=== PATIENT | male | born 1975 | race Two or more races ===

== ENCOUNTER → 2019-05-20 | Day surgery (SDC) | payer OTHER ==
[~2019-05-20] MED LIST: B&O 60MG R/S 60 MG SUPP PR ONE; CEFTRIAXONE SOD 1 GM/NS 50 ML 50 ML IV ONE; DESFLURANE 240 ML BTL INH ONE; DEXAMETHASONE SOD PHOS INJ 4 MG/ML VIAL ONE; DOXAZOSIN MESYLA2 MG PO; FENTANYL CITRATE/PF 100MCG/2 ML INJ ONE; IOPAMIDOL 300MG/ML 50ML INFUS..BTL IV ONE; LIDOCAINE HCL 2% LOCAL INJ 5 ML SDV VIAL INJ ONE; MIDAZOLAM HCL 2 MG/2 ML VIAL ONE; ONDANSETRON HCL INJ 2MG/ML 2ML 2 MG/ML VIAL ONE; PROPOFOL IV EMULSION 10 MG/ML 20 ML VIAL ONE
--- OUTSIDE RECORDS SUMMARY | 2019-05-20 13:12 | XMS REPORT ---
Author Author [facility] Address Unknown Phone Unavailable Care Team Providers Care Operations Developer Name Role Phone Unavailable Unavailable Payers Payer Name Policy Type Policy Number Effective Date Expiration Date Problems This patient has no known problems. Allergies, Adverse Reactions, Alerts Allergy Name Allergy Type Status Severity Reaction(s) Onset Date Inactive Date Treating Clinician Comments No Known Allergies DA Active U 2019-03-10 00:00:00 Medications This patient has no known medications. Results Test Description Test Time Test Comments Text Results Atomic Results Result Comments CBC W/AUTO DIFF 2019-03-11 01:22:00 WHITE BLOOD CELL (test code=WBC) 7.80 k/mm3 4.00-12.00 RED BLOOD CELL (test code=RBC) 5.44 M/uL 4.00-5.60 HEMOGLOBIN (test code=HGB) 14.8 GM/DL 12.5-16.9 HEMATOCRIT (test code=HCT) 46.0 % 40.0-54.0 MEAN CELL VOLUME (test code=MCV) 84.6 fL 81.0-99.0 MEAN CELL HGB (test code=MCH) 27.2 pg 27.0-31.0 MEAN CELL HGB CONCETRATION (test code=MCHC) 32.2 GM/DL 33.0-37.0 RED CELL DISTRIBUTION WIDTH CV (test code=RDW) 14.8 % 11.5-14.5 PLATELET COUNT (test code=PLT) 171 K/mm3 150-400 MEAN PLATELET VOLUME (test code=MPV) 13.5 FL 8.8-13.1 NEUTROPHIL % (test code=NT%) 47.8 % 40.0-76.0 LYMPHOCYTE % (test code=LY%) 44.6 % 15.0-40.0 MIXED % (test code=MX%) 7.6 % 3.0-15.0 NEUTROPHIL # (test code=NT#) 3.7 K/uL 1.8-7.6 LYMPHOCYTE # (test code=LY#) 3.5 K/uL 1.0-3.8 MIXED # (test code=MX#) 0.6 k/mm3 0.1-0.8 - CT ABD PELVIS [id number] 17:48:00 Name: COLIN RAMIREZ [place] FSED : 1975 Age/S: 43 / M Unit #: [id number] Loc: [place] Phys: Amilcar Rosales MD Acct: [id number] Dis Date: Status: REG ER PHONE #: Exam Date: 03/10/2019 3650 FAX #: Reason: urinary retention, abd pain EXAMS: CPT CODE: [id number] CT ABD PELVIS W/CONT 99959 EXAM: CT ABDOMEN AND PELVIS WITH CONTRAST DATE: 03/10/2019 4:52 PM : 1975; Age: 43 years y/o Male INDICATION: urinary retention, abd pain COMPARISON: None. TECHNIQUE: Volumetric CT of the abdomen and pelvis is acquired following the intravenous administration of contrast. Axial, coronal and sagittal images are provided. IV contrast: 100 mL Isovue Enteric contrast: None. DLP: 1156 mGy-cm CT imaging performed at this location utilizes radiation dose optimization techniques which include one or more of the following: -Automated exposure control -Adjustment of the mA and/or kV according to patient size -Use of iterative reconstruction technique FINDINGS: Lower thorax: Clear. Liver: Diffusely decreased attenuation consistent with steatosis. Gallbladder: No calcified stones or wall thickening. Adrenals: Normal. Kidneys and ureters: Normal. Spleen: Normal. Pancreas: Normal. Visualized Gastrointestinal tract: Grossly unremarkable. No obstruction. Peritoneum, mesentery and retroperitoneum: No free air, lymph adenopathy, ascites or loculated fluid. Reproductive organs: Prost atomegaly. Seminal vesicles are symmetric. Prostate gland measures up to 6.3 cm. PAGE 1 Signed Report (CONT INUED) Name: COLIN RAMIREZ [place] FSED : 1975 Age/S: 43 / M Unit #: [id number] Loc: [place], [place] Phys: Amilcar Silva MD Acct: [id number] Dis Date: Status: REG ER CONSUELO NE #: Exam Date: 03/10/2019 1737 FAX #: Reason: urinary retention, abd pain EXAM S: CPT CODE: [id number] CT ABD PELVIS W/CONT 05980 <Continued> Bladder: Mild circumferential bladder wall thickening. Soft tissues: Normal. Bones: No acute abnormality. Age-related degenerative findings. Focal disc bulge is seen at L1-2 level indenting the thecal sac. IMPRESSION: 1. Pro state gland is enlarged measuring 6.3 cm with mild circumferential bladd er wall thickening. Please correlate with chronic bladder outlet obstru ction. 2. Hepatic steatosis. 3. Focal disc bulge is seen at L1 -2 level indenting the thecal sac. MRI lumbar spine can be performed if clinically indicated. SL: [id number] Electronically Signed by Miesha Gonzales on at 1748 Reported and signed by: Ramsey Gonzales D.O. CC: Amilcar Rosales MD Technologist:Katya Ramirez, RT(R) CTDI: DLP: Trnscb Date/Time: 03/10/2019 (1748) [email or web address] Orig Print D/T: S: 03/10/2019 (175) PAGE 2 Signed Report UA DIPSTICK [id number] 15:53:00* Test Item Value Reference Range Comments UA GLUCOSE DIPSTIC POC (test code=GLUUP) 2+ NEGATIVE UA BILIRUBIN DIPSTICK (test code=BILU) 1+ NEGATIVE UA KETONE DIPSTICK POC (test code=KETUP) 1+ NEGATIVE UA SPECIFIC GRAVITY (test code=SGU) 1.020 1.005-1.030 UA BLOOD DIPSTIC POC (test code=BLUP) 2+ NEGATIVE Performed by certified bleach machine operator at [facility] UA PH DIPSTIC POC (test code=PHUP) 5 5.0-7.0 UA PROTEIN DIPSTICK POC (test code=DPROUP) 1+ NEGATIVE UA UROBILINIOGEN QUAL (test code=UROQL) 1+ 0.2-1.0 UA NITRITE DIPSTICK POC (test code=NITUP) 1+ Negative UA LEUKOCYTE ESTERASE W REFLEX (test code=LEUUR) TRACE NEGATIVE [id number] 15:17:00* Test Item Value Reference Range Comments SODIUM (test code=NA/ABG) 144 MEQ/L 134-147 [id number] 15:17:00* Test Item Value Reference Range Comments POTASSIUM (test code=K/ABG) MEQ/L 3.4-5.0 [id number] 15:17:00* Test Item Value Reference Range Comments CHLORIDE (test code=CL/ABG) MEQ/L 100-108 CREATININE [id number] 15:17:00* Test Item Value Reference Range Comments CREATININE ABG (test code=CREAABG) mg/dL 0.8-1.3 POC IONIZED [id number] 15:17:00* Test Item Value Reference Range Comments POC IONIZED CALCIUM (test code=POCCA) MMOL/L 1.12-1.32 POC [id number] 15:17:00* Test Item Value Reference Range Comments POC GLUCOSE (test code=POCGLU) MG/DL 70-110 [id number] 15:17:00* Test Item Value Reference Range Comments SODIUM (test code=NA/ABG) 144 MEQ/L 134-147 [id number] 15:17:00* Test Item Value Reference Range Comments POTASSIUM (test code=K/ABG) 4.1 MEQ/L 3.4-5.0 [id number] 15:17:00* Test Item Value Reference Range Comments CHLORIDE (test code=CL/ABG) MEQ/L 100-108 CREATININE [id number] 15:17:00* Test Item Value Reference Range Comments CREATININE ABG (test code=CREAABG) mg/dL 0.8-1.3 POC IONIZED [id number] 15:17:00* Test Item Value Reference Range Comments POC IONIZED CALCIUM (test code=POCCA) MMOL/L 1.12-1.32 POC [id number] 15:17:00* Test Item Value Reference Range Comments POC GLUCOSE (test code=POCGLU) MG/DL 70-110 [id number] 15:17:00* Test Item Value Reference Range Comments SODIUM (test code=NA/ABG) 144 MEQ/L 134-147 [id number] 15:17:00* Test Item Value Reference Range Comments POTASSIUM (test code=K/ABG) 4.1 MEQ/L 3.4-5.0 [id number] 15:17:00* Test Item Value Reference Range Comments CHLORIDE (test code=CL/ABG) MEQ/L 100-108 CREATININE [id number] 15:17:00* Test Item Value Reference Range Comments CREATININE ABG (test code=CREAABG) mg/dL 0.8-1.3 POC IONIZED [id number] 15:17:00* Test Item Value Reference Range Comments POC IONIZED CALCIUM (test code=POCCA) 1.25 MMOL/L 1.12-1.32 POC [id number] 15:17:00* Test Item Value Reference Range Comments POC GLUCOSE (test code=POCGLU) MG/DL 70-110 [id number] 15:17:00* Test Item Value Reference Range Comments SODIUM (test code=NA/ABG) 144 MEQ/L 134-147 [id number] 15:17:00* Test Item Value Reference Range Comments POTASSIUM (test code=K/ABG) 4.1 MEQ/L 3.4-5.0 [id number] 15:17:00* Test Item Value Reference Range Comments CHLORIDE (test code=CL/ABG) MEQ/L 100-108 CREATININE [id number] 15:17:00* Test Item Value Reference Range Comments CREATININE ABG (test code=CREAABG) mg/dL 0.8-1.3 POC IONIZED [id number] 15:17:00* Test Item Value Reference Range Comments POC IONIZED CALCIUM (test code=POCCA) 1.25 MMOL/L 1.12-1.32 POC [id number] 15:17:00* Test Item Value Reference Range Comments POC GLUCOSE (test code=POCGLU) 100 MG/DL 70-110 [id number] 15:17:00* Test Item Value Reference Range Comments SODIUM (test code=NA/ABG) 144 MEQ/L 134-147 [id number] 15:17:00* Test Item Value Reference Range Comments POTASSIUM (test code=K/ABG) 4.1 MEQ/L 3.4-5.0 [id number] 15:17:00* Test Item Value Reference Range Comments CHLORIDE (test code=CL/ABG) 105 MEQ/L 100-108 CREATININE [id number] 15:17:00* Test Item Value Reference Range Comments CREATININE ABG (test code=CREAABG) mg/dL 0.8-1.3 POC IONIZED [id number] 15:17:00* Test Item Value Reference Range Comments POC IONIZED CALCIUM (test code=POCCA) 1.25 MMOL/L 1.12-1.32 POC [id number] 15:17:00* Test Item Value Reference Range Comments POC GLUCOSE (test code=POCGLU) 100 MG/DL 70-110 [id number] 15:17:00* Test Item Value Reference Range Comments SODIUM (test code=NA/ABG) 144 MEQ/L 134-147 [id number] 15:17:00* Test Item Value Reference Range Comments POTASSIUM (test code=K/ABG) 4.1 MEQ/L 3.4-5.0 [id number] 15:17:00* Test Item Value Reference Range Comments CHLORIDE (test code=CL/ABG) 105 MEQ/L 100-108 CREATININE [id number] 15:17:00* Test Item Value Reference Range Comments CREATININE ABG (test code=CREAABG) 0.8 mg/dL 0.8-1.3 POC IONIZED [id number] 15:17:00* Test Item Value Reference Range Comments POC IONIZED CALCIUM (test code=POCCA) 1.25 MMOL/L 1.12-1.32 POC [id number] 15:17:00* Test Item Value Reference Range Comments POC GLUCOSE (test code=POCGLU) 100 MG/DL 70-110
[2019-05-20 13:46] VITALS: BP 118/91
--- NOTE | 2019-05-22 22:26 | Operative Report ---
DATE OF PROCEDURE: 05/20/2019 SURGEON: Daniel Palafox MD PREOPERATIVE DIAGNOSES: 1. Urinary tract infections. 2. Urethral stricture disease. POSTOPERATIVE DIAGNOSES: 1. Dense and long bulbar urethral stricture. 2. Urinary tract infections. OPERATIONS PERFORMED: 1. Cystourethroscopy with direct vision internal urethrotomy (separate procedure performed for urethral stricture). 2. Cystourethroscopy with bilateral ureteral catheterization and retrograde ureteropyelography (separate procedure performed for urine tract infections). 3. Interpretation of retrograde ureteropyelography. 4. Supervision of fluoroscopy, no radiologist present. ANESTHESIA: General. COMPLICATIONS: None. CLINICAL SUMMARY: Javi Reinoso is a 43-year-old man, who had a terrible urinary force of stream. Cystoscopy in the office revealed a stricture at the bulbar region that could not be dilated in the office. The patient is brought for management. He is aware of the risks of bleeding, infection, injury to adjacent structures, need for additional procedures, and elected to proceed. OPERATIVE PROCEDURE IN DETAIL: Informed consent was verified. Javi Reinoso was properly identified, taken to the operating room, and placed on the cystoscopy table in supine position. Anesthesia was uneventfully begun. The patient was then carefully and gently repositioned in the dorsal lithotomy position with all pressure points well padded. His genitalia were prepared and draped in usual sterile fashion. The direct urethrotome was inserted under direct vision and guided to the proximal urethra. We placed a guidewire through this channel and it was not easy to negotiate the guidewire, but we used a number of maneuvers including the 5-[place] open-ended ureteral catheter in order to accomplish this, and the wire was coiled in the patient's bladder fluoroscopically. We then utilized a cold knife to incise at the 12 o'clock position through the stricture, that was at least 1.5 cm in length and was relatively dense. We cut to friable tissue through the entire thickness of the scar. The cystoscope was then introduced under direct vision and guided through the now opened strictured region through the normal external sphincteric region through the prostate bed, which was relatively open and into the patient's bladder, where trabeculations were noted. There were no tumors. There were no stones. There were no suspicious lesions. Ureteral catheter was used to cannulate each ureter and retrograde ureteropyelogram was performed. Interpretation of retrograde ureteropyelography contrast was instilled in retrograde fashion bilaterally. There seemed to be fullness bilaterally to a similar point that the proximal portion of the ureter, but there were no suspicious filling defects. There were no stones. There were no diverticula. Unobstructed drainage was observed fluoroscopically. Over a guidewire, a Camilo catheter was in place. It was irrigated to and fro to ensure it worked properly. A belladonna and opium suppository were placed revealing a small prostate, that is 20 g in size, smooth and nonfunctional without any nodules. The patient was then uneventfully reversed from anesthesia and taken to recovery room in stable condition. There were no complications to the procedure. He tolerated the procedure well. Explicit postop instructions were given, and we will follow the patient up in the office in 2-3 weeks to remove his Camilo. Ongoing urological followup for the strictures mandatory. Daniel Palafox MD [place]/LEXIE /[id number]
== END | disposition home or self-care (01) ==
LOC: OR 09:58
PROVIDERS: ATTEND Urology
DX: N35.912 Unspecified bulbous urethral stricture, male (principal); N32.89 Other specified disorders of bladder; N41.1 Chronic prostatitis; N40.1 Benign prostatic hyperplasia with lower urinary tract symptoms; R33.9 Retention of urine, unspecified; R35.1 Nocturia; R33.8 Other retention of urine; R39.14 Feeling of incomplete bladder emptying; R80.9 Proteinuria, unspecified
CPT/HCPCS: 74420; 93005; C1758; C1769; J0696; J1100; J2001; J2250; J2405; J3010